=== PATIENT | female | born 1995 | race Caucasian/White ===

== ENCOUNTER 2021-03-22 17:45 | Emergency (ER) | payer MEDICAID ==
[~2021-03-22] VITALS: Ht 167.6 cm; Wt 107.2 kg
[2021-03-22 17:50] VITALS: BP 129/86
[2021-03-22] MEDS ORDERED: LIDOcaine 1% W/epiNEPHrine 1:200,000 10ml vial IJ ONE (18:40)
[2021-03-22] MEDS ORDERED: TETanus/Pertussis (Acell)/Diphther VAC/PF (Tdap-Adult) 0.5ml syringe IMVAC ONE (18:40)
== END 2021-03-22 20:49 | disposition home or self-care (01) ==
LOC: ER 17:46
DX: S61.217A Laceration without foreign body of left little finger without damage to nail, initial encounter (principal); F17.200 Nicotine dependence, unspecified, uncomplicated; Z72.89 Other problems related to lifestyle; Z20.3 Contact with and (suspected) exposure to rabies; W45.8XXA Other foreign body or object entering through skin, initial encounter; Y93.89 Activity, other specified; Y92.89 Other specified places as the place of occurrence of the external cause; Y99.8 Other external cause status
CPT/HCPCS: 12001; 90471; 90715; 99283